=== PATIENT | female | born 1950 | race Caucasian/White ===

== ENCOUNTER → 2016-07-09 | Outpatient (CLI) | payer MEDICARE, OTHER ==
--- NOTE | 2016-07-09 15:32 | REP ---
Chest two views HISTORY: Cough Comparison: 03/20/2014 A minimal increase in interstitial markings is present in the lungs consistent with chronic interstitial fibrosis. The heart is normal in size. The pulmonary vasculature is normal in appearance. The bony structure is intact. IMPRESSION: Chronic interstitial fibrosis. Signed by Taye Deleon MD 07/09/2016 03:24 P
== END ==
LOC: M WUC 15:04
PROVIDERS: ATTEND Nurse Practitioner Family
DX: J06.9 Acute upper respiratory infection, unspecified (principal); R05 Cough; R06.2 Wheezing

== ENCOUNTER → 2016-10-30 | Outpatient (CLI) | payer MEDICARE, OTHER ==
--- NOTE | 2016-10-30 14:41 | REPMRS ---
Patient History The patient states she had a clinical breast exam in 10/2016. Patient is postmenopausal and has history of other cancer at age 62. Family history of breast cancer in sister at age 46, colorectal cancer in mother at age 50 or over, and breast cancer in maternal aunt under age 50. Benign cyst aspiration, 1980. Taking unspecified hormones for 3 years. Digital Woman Screen Mammo: October 30, 2016 - Exam #: [id number] Bilateral CC and MLO view(s) were taken. Technologist: Sadia Connelly, Technologist Prior study comparison: October 04, 2015, right breast digital mammo diagnostic unilateral, performed at [facility]. October 02, 2015, digital woman screen mammo performed at [facility]. FINDINGS: There are scattered fibroglandular densities. There is a fairly symmetric fibroglandular pattern in both breasts. There has been no interval development of masses, areas of architectural distortion or clusters of microcalcifications typical of malignancy. ASSESSMENT: BI-RADS/ACR category 2 mammogram. Benign finding(s). Recommendation Routine screening mammogram of both breasts in 1 year (for women over age 40). This mammogram was interpreted with the aid of an FDA-approved computer-aided dectection system. Electronically Signed By: Mango Coffey MD 10/30/16 [id number]
== END ==
LOC: M WHC 13:31
PROVIDERS: ATTEND Nurse Practitioner Women's Health
DX: Z01.419 Encounter for gynecological examination (general) (routine) without abnormal findings (principal); Z12.31 Encounter for screening mammogram for malignant neoplasm of breast; Z78.0 Asymptomatic menopausal state; Z12.12 Encounter for screening for malignant neoplasm of rectum; Z92.89 Personal history of other medical treatment; Z80.3 Family history of malignant neoplasm of breast
CPT/HCPCS: 82270; G0101; G0202

== ENCOUNTER → 2017-09-17 | Outpatient (CLI) | payer MEDICARE, OTHER | LOC: M RAD 10:59 | DX: Z12.2 Encounter for screening for malignant neoplasm of respiratory organs (principal); F17.218 Nicotine dependence, cigarettes, with other nicotine-induced disorders | CPT/HCPCS: G0297 ==

== ENCOUNTER → 2018-01-01 | Outpatient (CLI) | payer MEDICARE, OTHER | LOC: M WHC 15:01 | DX: Z12.31 Encounter for screening mammogram for malignant neoplasm of breast (principal); Z78.0 Asymptomatic menopausal state; Z92.89 Personal history of other medical treatment; Z92.29 Personal history of other drug therapy; Z80.3 Family history of malignant neoplasm of breast | CPT/HCPCS: 77067 ==

== ENCOUNTER → 2018-09-14 | Outpatient (CLI) | payer MEDICARE, OTHER ==
--- NOTE | 2018-09-14 13:37 | REP ---
CT CHEST WITHOUT CONTRAST: Low-dose screening exam. HISTORY: Personal history of nicotine dependence. Comparison screening exam September 17, 2017. Comparison chest CT is also reviewed from August 25 2016. There is a screening exam from August 16, [address] FINDINGS: Digital preliminary color adviser radiograph is unremarkable. The lungs are somewhat hyperinflated. There is mild right apical pleuroparenchymal fibrosis. This is slightly more prominent than on the prior studies. There is a new angular linear opacity in the right upper lobe consistent with some new fibrosis. No nodule is seen here or elsewhere. IMPRESSION: Lung RADS category 1 negative exam. Repeat screening exam suggested in 1 year. Electronically Signed by Paul Shepard MD 09/14/2018 05:17 P
== END ==
LOC: M RAD 09:31
PROVIDERS: ATTEND Internal Medicine Pulmonary Disease
DX: Z12.2 Encounter for screening for malignant neoplasm of respiratory organs (principal); F17.210 Nicotine dependence, cigarettes, uncomplicated

== ENCOUNTER → 2019-01-12 | Outpatient (CLI) | payer MEDICARE, OTHER ==
--- NOTE | 2019-01-12 20:52 | REP ---
Great toe series: Four views. History: Contusion. Findings: Four views of the left great toe demonstrate mild spurring at the first MTP joint. There is soft tissue swelling about the IP joint of the great toe. There is subtle cortical discontinuity along the medial aspect of the proximal phalanx of the great toe at the IP joint. A nondisplaced fracture is suspected. No other fracture is seen. Impression: Suspect nondisplaced fracture of the distal end of the proximal phalanx of the great toe at the IP joint. Electronically Signed by Paul Shepard MD 01/12/2019 09:20 P
== END ==
LOC: M WUC 15:56
PROVIDERS: ATTEND Physician Assistant
DX: S90.112A Contusion of left great toe without damage to nail, initial encounter (principal); X58.XXXA Exposure to other specified factors, initial encounter; Y92.89 Other specified places as the place of occurrence of the external cause

== ENCOUNTER → 2019-02-15 | Outpatient (CLI) | payer MEDICARE, OTHER ==
[~2019-02-15] MED LIST: ESTR1CRE VA; VITA200028 PO
--- NOTE | 2019-02-15 11:52 | REPMRS ---
Patient History The patient states she had a clinical breast exam in 01/2019. Patient is postmenopausal and has history of skin cancer at age 62. Family history of breast cancer at age 46 in sister, breast cancer under age 50 in maternal aunt, colorectal cancer at age 50 or over in mother. Benign cyst aspiration, 1981. Took unspecified hormones for 4 years. 3D TOMOSYNTHESIS WAS PERFORMED. [facility] lifetime risk for breast cancer is 10.0%. Digital Woman Screen Mammo: February 15, 2019 - Exam #: [id number] Bilateral CC and MLO view(s) were taken. Technologist: Gisel Dumas, Technologist Prior study comparison: January 01, 2018, bilateral digital woman screen mammo performed at [facility]. October 30, 2016, digital woman screen mammo performed at [facility]. FINDINGS: The breast tissue is heterogeneously dense. This may lower the sensitivity of mammography. There has been no change in the appearance of the mammogram from the prior studies. There is a moderate amount of residual fibroglandular tissue which is fairly symmetric. There is no interval development of dominant mass, areas of architectural distortion, or clustered microcalcification typical of malignancy. Assessment: BI-RADS/ACR category 1 mammogram. Negative Mammogram. Recommendation Routine screening mammogram in 1 year (for women over age 40). This mammogram was interpreted with the aid of an FDA-approved computer-aided dectection system. Electronically Signed By: Mango Coffey MD 02/15/19 [id number]
== END ==
LOC: M WHC 09:38
PROVIDERS: ATTEND Nurse Practitioner Women's Health
DX: Z01.419 Encounter for gynecological examination (general) (routine) without abnormal findings (principal); Z12.31 Encounter for screening mammogram for malignant neoplasm of breast; Z78.0 Asymptomatic menopausal state; Z85.828 Personal history of other malignant neoplasm of skin; Z80.3 Family history of malignant neoplasm of breast; Z80.0 Family history of malignant neoplasm of digestive organs; Z86.018 Personal history of other benign neoplasm; Z92.29 Personal history of other drug therapy
CPT/HCPCS: 77063; 77067; G0101

== ENCOUNTER → 2019-03-23 | Outpatient (REF) | payer MEDICARE, OTHER | LOC: M LAB REF 12:19 | PROVIDERS: ATTEND Internal Medicine | DX: Z01.89 Encounter for other specified special examinations (principal) ==

== ENCOUNTER 2019-07-13 10:47 | Day surgery (SDC) | payer MEDICARE, OTHER ==
[~2019-07-13] VITALS: Ht 162.6 cm; Wt 59.9 kg
[~2019-07-13 10:47] MED LIST changes: +NS 1,000 ML IV ONE
[2019-07-13] MEDS ORDERED: propofoL 200 MG/20 ML VIAL As Ordered ONE (11:53)
[2019-07-13] MEDS ORDERED: LIDOCAINE 2% INJ 100 MG/5 ML SDV (FOR ANES.) As Ordered ONE (11:53)
--- NOTE | 2019-07-13 13:43 | ROOR ---
Patient Name: Flory Ramírez Procedure Date: 07/13/2019 1:14 PM Date of : 1950 Age: 68 Room: [facility] Gender: Female Note Status: Finalized Procedure: Total Colonoscopy to Cecum + Cold Snare Polypectomy + Hemoclips Indications: Screening in patient at increased risk: Colorectal cancer in mother 60 or older Providers: Brice Armas MD Referring MD: DERREK CARTAGENA JR, MD Requesting Provider: Medicines: Monitored Anesthesia Care Complications: No immediate complications. Procedure: Pre-Anesthesia Assessment: - The heart rate, respiratory rate, oxygen saturations, blood pressure, adequacy of pulmonary ventilation, and response to care were monitored throughout the procedure. The Colonoscope was introduced through the anus and advanced to the terminal ileum, with identification of the appendiceal orifice and IC valve. The colonoscopy was performed without difficulty. The patient tolerated the procedure well. The quality of the bowel preparation was excellent. Findings: The perianal and digital rectal examinations were normal. Non-bleeding internal hemorrhoids were found during retroflexion. The hemorrhoids were small and Grade I (internal hemorrhoids that do not prolapse). Multiple small and large-mouthed diverticula were found in the recto-sigmoid colon, sigmoid colon and descending colon. A medium polyp was found in the ascending colon. The polyp was sessile. The polyp was removed with a cold snare. Resection and retrieval were complete. To prevent bleeding after the polypectomy, one hemostatic clip was successfully placed (MR conditional). There was no bleeding at the end of the procedure. A small polyp was found at 20 cm proximal to the anus. The polyp was sessile. The polyp was removed with a cold snare. Resection and retrieval were complete. To prevent bleeding after the polypectomy, one hemostatic clip was successfully placed (MR conditional). There was no bleeding at the end of the procedure. The exam was otherwise without abnormality. Impression: - Non-bleeding internal hemorrhoids. - Diverticulosis in the recto-sigmoid colon, in the sigmoid colon and in the descending colon. - One medium polyp in the ascending colon, removed with a cold snare. Resected and retrieved. Clip (MR conditional) was placed. - One small polyp at 20 cm proximal to the anus, removed with a cold snare. Resected and retrieved. Clip (MR conditional) was placed. - The examination was otherwise normal. - The exam was otherwise normal to the cecum. Recommendation: - Patient has a contact number available for emergencies. The signs and symptoms of potential delayed complications were discussed with the patient. Return to normal activities tomorrow. Written discharge instructions were provided to the patient. - High fiber diet. - Discharge patient to home. - Continue present medications. - Await pathology results. - Telephone GI clinic for pathology results in 1 week. - Repeat colonoscopy for screening purposes and for surveillance. - Return to referring physician. - The findings and recommendations were discussed with the patient's family. Brice Armas MD Brice Armas MD 07/13/2019 1:42:46 PM Electronically signed by Brice Armas MD Number of Addenda: 0 Note Initiated On: 07/13/2019 1:14 PM Estimated Blood Loss: Estimated blood loss: none.
[2019-07-13 14:05] VITALS: BP 127/79
== END 2019-07-13 14:40 | disposition home or self-care (01) ==
LOC: M OPP 10:47
PROVIDERS: ATTEND Internal Medicine Gastroenterology
DX: Z12.11 Encounter for screening for malignant neoplasm of colon (principal); K63.5 Polyp of colon; K57.30 Diverticulosis of large intestine without perforation or abscess without bleeding; K64.0 First degree hemorrhoids; Z80.0 Family history of malignant neoplasm of digestive organs; R12 Heartburn; M19.90 Unspecified osteoarthritis, unspecified site; J44.9 Chronic obstructive pulmonary disease, unspecified; F17.200 Nicotine dependence, unspecified, uncomplicated; Z85.828 Personal history of other malignant neoplasm of skin; Z79.890 Hormone replacement therapy; Z79.899 Other long term (current) drug therapy

== ENCOUNTER → 2019-10-13 | Outpatient (CLI) | payer MEDICARE, OTHER ==
[~2019-10-13] MED LIST changes: -NS 1,000 ML IV ONE
--- NOTE | 2019-10-13 12:34 | REP ---
LOW DOSE LUNG SCREENING CT: Low does lung screening CT performed without IV contrast. COMPARISON: 09/14/2018. Once again, there is no evidence of a suspicious pulmonary nodule. Small calcifications in the right posterior costophrenic sulcus. No consolidative infiltrate is seen. The heart is not enlarged. No pleural effusion is seen. The mediastinal contour is unremarkable. There are degenerative changes of the spine. IMPRESSION: Lung RADS category [address] No suspicious nodule. Followup recommended in 1 year. Electronically Signed by Mango Coffey MD 10/13/2019 12:58 P
== END ==
LOC: M RAD 10:23
PROVIDERS: ATTEND Internal Medicine Pulmonary Disease
DX: F17.218 Nicotine dependence, cigarettes, with other nicotine-induced disorders (principal)

== ENCOUNTER → 2020-02-17 | Outpatient (CLI) | payer MEDICARE, OTHER ==
--- NOTE | 2020-02-17 15:02 | REPMRS ---
Patient History The patient states she had a clinical breast exam in January 2020.Family history of breast cancer at age 46 in sister, breast cancer under age 50 in maternal aunt, colorectal cancer at age 50 or over in mother. Benign cyst aspiration, 1981. Took unspecified hormones for 4 years. Digital Woman Screen Mammo: February 17, 2020 - Exam #: [id number] Bilateral CC and MLO view(s) were taken. Technologist: Yaneth Benson, Technologist Prior study comparison: February 15, 2019, bilateral digital woman screen mammo performed at [facility]. January 01, 2018, bilateral digital woman screen mammo performed at [facility]. October 30, 2016, digital woman screen mammo performed at [facility]. FINDINGS: The breast tissue is heterogeneously dense. This may lower the sensitivity of mammography. The Volpara volumetric breast density category is: C. There is a moderate amount of heterogeneously dense fibroglandular tissue which is fairly symmetric. There is no interval development of dominant mass, architectural distortion, or grouped microcalcification typical of malignancy. There has been no change in the appearance of the mammogram from the prior studies. 3-D tomosynthesis shows no additional findings. Assessment: BI-RADS/ACR category 1 mammogram. Negative Mammogram. Recommendation Routine screening mammogram of both breasts in 1 year (for women over age 40). This patient's Lifetime Breast Cancer RIsk is estimated at 9.4 %. This mammogram was interpreted with the aid of an FDA-approved computer-aided dectection system. Electronically Signed By: Ryley Shepard MD 02/17/20 [id number]
== END ==
LOC: M WHC 11:06
PROVIDERS: ATTEND Nurse Practitioner Women's Health
DX: Z12.31 Encounter for screening mammogram for malignant neoplasm of breast (principal); Z80.3 Family history of malignant neoplasm of breast; Z80.0 Family history of malignant neoplasm of digestive organs; Z86.018 Personal history of other benign neoplasm; Z92.29 Personal history of other drug therapy

== ENCOUNTER → 2020-12-26 | Outpatient (CLI) | payer MEDICARE, OTHER ==
--- NOTE | 2020-12-26 09:35 | REP ---
INDICATION: NICOTINE DEPENDENCE. COMPARISON: 10/13/2019, 09/14/2018, 09/17/2017 TECHNIQUE: Low-dose lung CT screening protocol FINDINGS: Lung lyle are hyperinflated with underlying COPD. There is no pleural thickening, pleural plaque or calcified plaque, effusion or acute infiltrate. There are no parenchymal masses. Some minor apical pleuroparenchymal scarring again noted and unchanged. There are no suspicious nodules. Very minimal cylindrical bronchiectatic changes are suggested. No other findings. IMPRESSION: 1. Lung RADS category 1, negative lung screening CT. Patients with this category of the examination have less than 1% chance of malignancy at the time of the examination. For patients at high risk of developing lung cancer, annual low-dose CT screening recommended. <Electronically signed by Hill Abel > 12/26/20 [id number]
== END ==
LOC: M RAD 09:02
PROVIDERS: ATTEND Internal Medicine Pulmonary Disease
DX: Z12.2 Encounter for screening for malignant neoplasm of respiratory organs (principal); F17.218 Nicotine dependence, cigarettes, with other nicotine-induced disorders

== ENCOUNTER → 2021-03-13 | Outpatient (CLI) | payer MEDICARE, OTHER ==
--- NOTE | 2021-03-13 12:16 | REPMRS ---
Patient History The patient states she had a clinical breast exam on 03-13-21. Patient is postmenopausal and has history of other cancer at age 62. Family history of breast cancer at age 46 in sister, breast cancer under age 50 in maternal aunt, colorectal cancer at age 50 or over in mother. Benign cyst aspiration, 1980. Taking unspecified hormones for 5 years beginning at age 65. Tomosynthesis is performed. Volpara breast density is c. [facility] lifetime risk of breast cancer 8.9%. Patient states no breast complaints today. Patient has signed MRS History Sheet. Digital Woman Screen Mammo: March 13, 2021 - Exam #: [id number] Bilateral CC and MLO view(s) were taken. Technologist: Sonam Hong Vice Principal Prior study comparison: February 17, 2020, bilateral digital woman screen mammo performed at [facility]. February 15, 2019, bilateral digital woman screen mammo performed at [facility]. FINDINGS: The breast tissue is heterogeneously dense. This may lower the sensitivity of mammography. There has been no change in the appearance of the mammogram from the prior studies. There is a moderate amount of residual fibroglandular tissue which is fairly symmetric. There is no interval development of dominant mass, areas of architectural distortion, or clustered microcalcification typical of malignancy. Assessment: BI-RADS/ACR category 1 mammogram. Negative Mammogram. Recommendation Routine screening mammogram in 1 year (for women over age 40). This mammogram was interpreted with the aid of an FDA-approved computer-aided dectection system. Electronically Signed By: Mango Coffey MD 03/13/21 [id number]
== END ==
LOC: M WHC 10:50
PROVIDERS: ATTEND Nurse Practitioner Women's Health
DX: Z01.419 Encounter for gynecological examination (general) (routine) without abnormal findings (principal); Z12.31 Encounter for screening mammogram for malignant neoplasm of breast; Z80.3 Family history of malignant neoplasm of breast; Z78.0 Asymptomatic menopausal state
CPT/HCPCS: 77063; 77067; G0101

== ENCOUNTER → 2022-01-29 | Outpatient (CLI) | payer MEDICARE, OTHER | LOC: M RAD 09:31 | PROVIDERS: ATTEND Internal Medicine Pulmonary Disease | DX: Z12.2 Encounter for screening for malignant neoplasm of respiratory organs (principal); F17.218 Nicotine dependence, cigarettes, with other nicotine-induced disorders ==

== ENCOUNTER 2022-01-31 11:38 | Emergency (ER) | payer MEDICARE, OTHER ==
[~2022-01-31] VITALS: Ht 162.6 cm; Wt 63.6 kg
[2022-01-31] MEDS ORDERED: ELIQ5TAB PO (13:26)
[2022-01-31 13:50] VITALS: BP 170/80
== END 2022-01-31 14:11 | disposition home or self-care (01) ==
LOC: M ED 11:38
DX: I82.432 Acute embolism and thrombosis of left popliteal vein (principal); J44.9 Chronic obstructive pulmonary disease, unspecified; F17.200 Nicotine dependence, unspecified, uncomplicated

== ENCOUNTER → 2022-04-03 | Outpatient (CLI) | payer MEDICARE, OTHER ==
[~2022-04-03] MED LIST changes: +ELIQ5TAB PO
== END ==
LOC: M WHC 09:54
PROVIDERS: ATTEND Nurse Practitioner Family
DX: Z12.31 Encounter for screening mammogram for malignant neoplasm of breast (principal)

== ENCOUNTER → 2022-06-11 | Outpatient (CLI) | payer MEDICARE, OTHER | LOC: M WUC 09:12 | PROVIDERS: ATTEND Physician Assistant Medical | DX: R05.9 Cough, unspecified (principal); J44.9 Chronic obstructive pulmonary disease, unspecified ==

== ENCOUNTER → 2022-08-13 | Outpatient (REF) | payer MEDICARE, OTHER | LOC: M LAB REF 12:03 | PROVIDERS: ATTEND Internal Medicine | DX: I82.402 Acute embolism and thrombosis of unspecified deep veins of left lower extremity (principal) ==

== ENCOUNTER → 2022-08-19 | Outpatient (CLI) | payer MEDICARE, OTHER | LOC: M RAD 14:04 | PROVIDERS: ATTEND Internal Medicine | DX: I82.402 Acute embolism and thrombosis of unspecified deep veins of left lower extremity (principal) ==

== ENCOUNTER → 2022-10-03 | Outpatient (CLI) | payer MEDICARE, OTHER | LOC: M WUC 12:13 | PROVIDERS: ATTEND Nurse Practitioner Family | DX: R05.9 Cough, unspecified (principal) ==

== ENCOUNTER → 2022-10-08 | Outpatient (CLI) | payer MEDICARE, OTHER | LOC: M WUC 13:32 | PROVIDERS: ATTEND Internal Medicine Pulmonary Disease | DX: R05.9 Cough, unspecified (principal); J43.1 Panlobular emphysema; F17.218 Nicotine dependence, cigarettes, with other nicotine-induced disorders ==

== ENCOUNTER → 2023-07-06 | Outpatient (CLI) | payer MEDICARE, OTHER | LOC: M WHC 11:27 | PROVIDERS: ATTEND Nurse Practitioner Family | DX: Z12.31 Encounter for screening mammogram for malignant neoplasm of breast (principal) ==

== ENCOUNTER → 2024-04-14 | Outpatient (CLI) | payer MEDICARE, OTHER | LOC: M RAD 09:27 | PROVIDERS: ATTEND Internal Medicine Pulmonary Disease | DX: Z12.2 Encounter for screening for malignant neoplasm of respiratory organs (principal); F17.218 Nicotine dependence, cigarettes, with other nicotine-induced disorders ==

== ENCOUNTER 2024-08-08 09:13 | Day surgery (SDC) | payer MEDICARE, OTHER ==
[~2024-08-08] VITALS: Ht 162.6 cm; Wt 60.4 kg
[~2024-08-08 09:13] MED LIST changes: +LIDOCAINE 2% 100MG/5ML SDV (FOR ANES.) As Ordered ONE; +VITA200048 PO; +propofoL 200 MG/20 ML VIAL As Ordered ONE
[2024-08-08 11:02] VITALS: TEMP 97.9
[2024-08-08 11:20] VITALS: BP 139/73; O2SAT 96
[2024-08-09] MEDS ORDERED: ALLE180T33 PO (10:20)
== END 2024-08-08 11:30 | disposition home or self-care (01) ==
LOC: M OPP 09:13
PROVIDERS: ATTEND Internal Medicine Gastroenterology
DX: Z12.11 Encounter for screening for malignant neoplasm of colon (principal); K64.0 First degree hemorrhoids; K57.30 Diverticulosis of large intestine without perforation or abscess without bleeding; Z80.0 Family history of malignant neoplasm of digestive organs; Z79.899 Other long term (current) drug therapy; J44.9 Chronic obstructive pulmonary disease, unspecified; F17.210 Nicotine dependence, cigarettes, uncomplicated

== ENCOUNTER → 2024-08-12 | Outpatient (REF) | payer MEDICARE, OTHER ==
[~2024-08-12] MED LIST changes: +ALLE180T33 PO; -LIDOCAINE 2% 100MG/5ML SDV (FOR ANES.) As Ordered ONE; -propofoL 200 MG/20 ML VIAL As Ordered ONE
[2024-08-12 13:23] LABS: RSV AMPLIFICATION NEGATIVE (NEGATIVE)
== END ==
LOC: M LAB REF 12:20
PROVIDERS: ATTEND Nurse Practitioner Family
DX: R05.9 Cough, unspecified (principal); R53.1 Weakness

== ENCOUNTER → 2024-08-23 | Outpatient (REF) | payer MEDICARE, OTHER | LOC: M LAB REF 19:12 | PROVIDERS: ATTEND Physician Assistant | DX: R30.0 Dysuria (principal) ==

== ENCOUNTER 2024-09-01 22:06 | Inpatient (IN) | payer MEDICARE, OTHER ==
[~2024-09-01] VITALS: Ht 162.6 cm; Wt 61.8 kg
[2024-09-01] MEDS ORDERED: IBUP200C29 PO (22:13)
[2024-09-01] MEDS ORDERED: ACET-683 PO (22:13)
[2024-09-02] VITALS (18 sets, daily range): BP systolic 131–167; BP diastolic 69–90; TEMP 97.1–98.5; O2SAT 88–97
[2024-09-02 00:19] LABS: INR 0.96; PARTIAL THROMBOPLASTIN TIME 26.8 SECONDS (24.8-34.2); PROTHROMBIN TIME 13.1 SECONDS (12.5-14.5)
[2024-09-02 00:24] LABS: BASO % 0.4 % (0.0-1.0); EOS # 0.1 10^3/uL (0.0-0.5); EOS % 0.8 % (0.0-3.0); HEMATOCRIT 40.4 % (36.0-47.0); HEMOGLOBIN 13.4 g/dl (12.0-15.5); LYMPH # 1.5 10^3/uL (1.5-5.0); LYMPH % 13.9 % (24.0-44.0); MEAN CORPUSCULAR HEMOGLOBIN 31.3 pg (27.0-33.0); MEAN CORPUSCULAR HGB CONC 33.2 g/dl (32.0-36.5); MEAN CORPUSCULAR VOLUME 94.4 fl (80.0-96.0); MONO # 0.6 10^3/uL (0.0-0.8); MONO % 5.8 % (2.0-8.0); NEUTROPHILS # 8.5 10^3/uL (1.5-8.5); PLATELET COUNT, AUTOMATED 192 10^3/uL (150-450); RED BLOOD COUNT 4.28 10^6/uL (4.00-5.40); WHITE BLOOD COUNT 10.9 10^3/uL (4.0-10.0)
[2024-09-02 00:38] LABS: BILIRUBIN,DIRECT 0.2 MG/DL (<0.4); BILIRUBIN,TOTAL 0.9 MG/DL (0.3-1.2); C REACTIVE PROTEIN QUANTITATIV 1.19 MG/DL (<1.0); TOTAL PROTEIN 7.4 G/DL (5.7-8.2)
[2024-09-02 00:55] LABS: ERYTHROCYTE SEDIMENTATION RATE 24 mm/hr (0-30)
[2024-09-02] MEDS ORDERED: HEPARIN SOD (PORCINE) 5000UNITS/ML 1ML VIAL/SYRINGE IV PRN ×2 (01:50→08:15)
[2024-09-02] MEDS: HEPARIN DRIP 25,000 UNITS in IV 1 EA IV SCH (02:12)
[2024-09-02] MEDS ORDERED: HOME MED LIST COMPLETE! XX SCH (07:00)
[2024-09-02 07:47] LABS: CALCIUM LEVEL 9.8 MG/DL (8.3-10.6); CREATININE FOR GFR 1.03 MG/DL (0.55-1.30); GLOMERULAR FILTRATION RATE 56.7 (>39); POTASSIUM SERUM 4.6 MMOL/L (3.5-5.1)
[2024-09-02] MEDS ORDERED: HEPARIN DRIP 25,000 UNITS in IV 1 EA IV SCH (08:15)
[2024-09-02] MEDS ORDERED: ISOVUE-370 76% 100ML VIAL As Ordered ONE (08:33)
[2024-09-02] MEDS: NS (Normal Saline) 0.9% 1,000 ML IV SCH ×2 (09:17→23:01)
[2024-09-02 09:41] LABS: HEMATOCRIT 38.4 % (36.0-47.0); HEMOGLOBIN 12.6 g/dl (12.0-15.5); MEAN CORPUSCULAR HEMOGLOBIN 31.6 pg (27.0-33.0); MEAN CORPUSCULAR HGB CONC 32.8 g/dl (32.0-36.5); MEAN CORPUSCULAR VOLUME 96.2 fl (80.0-96.0); PLATELET COUNT, AUTOMATED 178 10^3/uL (150-450); RED BLOOD COUNT 3.99 10^6/uL (4.00-5.40); WHITE BLOOD COUNT 9.2 10^3/uL (4.0-10.0)
[2024-09-02 10:07] LABS: CK-MB VALUE MASS 3.2 NG/ML (<3.6)
[2024-09-02 10:13] LABS: MB/CK RELATIVE INDEX 3.59 (< OR =4)
[2024-09-02 14:18] LABS: PARTIAL THROMBOPLASTIN TIME 113.6 SECONDS (24.8-34.2); PROTHROMBIN TIME 13.5 SECONDS (12.5-14.5)
[2024-09-02] MEDS ORDERED: LIDOCAINE 1% MDV 20ML VIAL SC ONE (17:35)
[2024-09-02] MEDS ORDERED: ISOVUE-300 61% 100ML VIAL As Ordered ONE (17:38)
[2024-09-02] MEDS ORDERED: LIDOCAINE 1% MDV 20ML VIAL As Ordered ONE (17:39)
[2024-09-02] MEDS: fentaNYL 100 MCG/2 ML INJECTION IV PRN (18:09)
[2024-09-02] MEDS: MIDAZOLAM INJ 2MG/2ML VIAL IV PRN (18:10)
[2024-09-02] MEDS: HEPARIN 1,000UNITS/ML 10ML VIAL (FOR RADIOLOGY & DIALYSIS ONLY) IV SCH (18:46)
[2024-09-02] MEDS: ISOVUE-300 61% 100ML VIAL IV ONE (18:57)
[2024-09-02 19:58] LABS: CREATININE FOR GFR 0.83 MG/DL (0.55-1.30); GLOMERULAR FILTRATION RATE > 60.0 (>39)
[2024-09-02] MEDS: ENOXAPARIN 60MG/0.6ML SYRINGE (J1650 PER 10MG) SC SCH (20:36)
[2024-09-02] MEDS: ACETAMINOPHEN 325 MG TAB PO PRN (23:12)
[2024-09-03] VITALS (15 sets, daily range): BP systolic 111–137; BP diastolic 58–69; TEMP 97.8–98; O2SAT 81–97
[2024-09-03 05:48] LABS: BASO % 0.4 % (0.0-1.0); EOS # 0.3 10^3/uL (0.0-0.5); EOS % 3.4 % (0.0-3.0); HEMATOCRIT 31.7 % (36.0-47.0); LYMPH # 2.3 10^3/uL (1.5-5.0); LYMPH % 31.3 % (24.0-44.0); MEAN CORPUSCULAR HEMOGLOBIN 31.2 pg (27.0-33.0); MEAN CORPUSCULAR HGB CONC 32.5 g/dl (32.0-36.5); MEAN CORPUSCULAR VOLUME 96.1 fl (80.0-96.0); MONO # 0.5 10^3/uL (0.0-0.8); MONO % 6.1 % (2.0-8.0); NEUTROPHILS # 4.3 10^3/uL (1.5-8.5); NEUTROPHILS % 58.5 % (36.0-66.0); PLATELET COUNT, AUTOMATED 169 10^3/uL (150-450); WHITE BLOOD COUNT 7.4 10^3/uL (4.0-10.0)
[2024-09-03 05:58] LABS: HEMOGLOBIN 10.3 g/dl (12.0-15.5)
[2024-09-03 06:25] LABS: BLOOD UREA NITROGEN 14 MG/DL (9-23); CALCIUM LEVEL 7.7 MG/DL (8.3-10.6); CARBON DIOXIDE LEVEL 26 MMOL/L (20-31); CHLORIDE LEVEL 108 MMOL/L (98-107); CREATININE FOR GFR 0.81 MG/DL (0.55-1.30); GLOMERULAR FILTRATION RATE > 60.0 (>39); GLUCOSE, FASTING 90 MG/DL (74-106); MAGNESIUM LEVEL 1.8 MG/DL (1.8-2.4); POTASSIUM SERUM 4.2 MMOL/L (3.5-5.1); SODIUM LEVEL 141 MMOL/L (136-145)
[2024-09-03] MEDS: FEXOFENADINE 60MG TAB PO SCH (08:59)
[2024-09-03] MEDS: VITAMIN D 1,000 INTERNATIONAL UNITS TABLET PO SCH (08:59)
[2024-09-03] MEDS ORDERED: LOVE0.4I2 SC (09:15)
[2024-09-03] MEDS ORDERED: ELIQ5TAB PO (09:15)
== END 2024-09-03 12:30 | disposition home health service (06) | DRG 270 ==
LOC: M ED 22:06 → M ED INP 09-02 08:04 → M PCU 09-02 10:02
PROVIDERS: ADMIT Internal Medicine; ATTEND Internal Medicine
PROC: 06CD3ZZ Extirpation of Matter from Left Common Iliac Vein, Percutaneous Approach (ICD-10-PCS; 2024-09-02)
PROC: 06CG3ZZ Extirpation of Matter from Left External Iliac Vein, Percutaneous Approach (ICD-10-PCS; 2024-09-02)
PROC: 06CN3ZZ Extirpation of Matter from Left Femoral Vein, Percutaneous Approach (ICD-10-PCS; principal; 2024-09-02 16:00)
DX: I82.412 Acute embolism and thrombosis of left femoral vein (principal); I26.99 Other pulmonary embolism without acute cor pulmonale; J44.9 Chronic obstructive pulmonary disease, unspecified; J43.9 Emphysema, unspecified; E78.5 Hyperlipidemia, unspecified; I12.9 Hypertensive chronic kidney disease with stage 1 through stage 4 chronic kidney disease, or unspecified chronic kidney disease; N18.30 Chronic kidney disease, stage 3 unspecified; I82.432 Acute embolism and thrombosis of left popliteal vein; M51.369 Other intervertebral disc degeneration, lumbar region without mention of lumbar back pain or lower extremity pain; F17.200 Nicotine dependence, unspecified, uncomplicated; Z85.828 Personal history of other malignant neoplasm of skin; Z86.16 Personal history of COVID-19; Z87.440 Personal history of urinary (tract) infections; Z79.1 Long term (current) use of non-steroidal anti-inflammatories (NSAID); Z79.899 Other long term (current) drug therapy

== ENCOUNTER → 2024-09-09 | Outpatient (POV) | payer MEDICARE, OTHER ==
[~2024-09-09] VITALS: Ht 162.6 cm; Wt 61.4 kg
[~2024-09-09] MED LIST changes: +ACET-683 PO; +IBUP200C29 PO; +LOVE0.4I2 SC
[2024-09-09 10:30] VITALS: BP 168/92; O2SAT 97
== END ==
LOC: M IRPOV 09:50
PROVIDERS: ATTEND Radiology Diagnostic Radiology
DX: Z48.812 Encounter for surgical aftercare following surgery on the circulatory system (principal); I82.522 Chronic embolism and thrombosis of left iliac vein; I82.412 Acute embolism and thrombosis of left femoral vein; Z79.01 Long term (current) use of anticoagulants

== ENCOUNTER → 2024-09-20 | Outpatient (REF) | payer MEDICARE, OTHER ==
[2024-09-20 14:07] LABS: PERCENT SATURATION 29.4 % (13.2-45.0)
== END ==
LOC: M LAB REF 13:33
PROVIDERS: ATTEND Internal Medicine
DX: D64.9 Anemia, unspecified (principal)

== ENCOUNTER → 2024-12-07 | Outpatient (POV) | payer MEDICARE, OTHER ==
[~2024-12-07] VITALS: Ht 162.6 cm; Wt 61.4 kg
[2024-12-07 11:00] VITALS: BP 170/92; O2SAT 98
== END ==
LOC: M IRPOV 10:29
PROVIDERS: ATTEND Radiology Diagnostic Radiology
DX: Z09 Encounter for follow-up examination after completed treatment for conditions other than malignant neoplasm (principal); I82.492 Acute embolism and thrombosis of other specified deep vein of left lower extremity; Z79.01 Long term (current) use of anticoagulants; Z86.718 Personal history of other venous thrombosis and embolism; Z86.16 Personal history of COVID-19; Z91.09 Other allergy status, other than to drugs and biological substances
CPT/HCPCS: 93971; G0463

== ENCOUNTER → 2024-12-07 | Outpatient (CLI) | payer MEDICARE, OTHER | LOC: M RAD 10:28 | PROVIDERS: ATTEND Radiology Diagnostic Radiology | DX: I82.492 Acute embolism and thrombosis of other specified deep vein of left lower extremity (principal) ==

== ENCOUNTER 2024-12-12 08:32 | Day surgery (SDC) | payer MEDICARE, OTHER ==
[~2024-12-12] VITALS: Ht 162.6 cm; Wt 59.9 kg
[~2024-12-12 08:32] MED LIST changes: +LR 1,000 ML IV SCH
[2024-12-12] MEDS ORDERED: MIDAZOLAM INJ 2 MG/2 ML VIAL As Ordered ONE (08:35)
[2024-12-12] MEDS: FLURBIPROFEN 0.03% OPHTH SOLN 2.5 ML OS SCH (09:48)
[2024-12-12] MEDS: PHENYLEPHRINE 2.5% OPHTH SOL 2ML OS SCH (09:48)
[2024-12-12] MEDS: TETRACAINE 0.5% OPHTH SOLN 4ML OS SCH (09:48)
[2024-12-12] MEDS: CYCLOPENTOLATE 1% OPHTH SOLN 2 ML BTL OS SCH (09:48)
[2024-12-12] MEDS: LIDOCAINE 1% SDV 5 ML VIAL As Ordered ONE (10:58)
[2024-12-12] MEDS: CEFUROXIME 1 MG/0.1 ML INTRACAMERAL INJ As Ordered ONE (10:58)
[2024-12-12 11:17] VITALS: BP 160/72; TEMP 97.2; O2SAT 96
== END 2024-12-12 11:36 | disposition home or self-care (01) ==
LOC: M SDC 08:32
PROVIDERS: ATTEND Ophthalmology
DX: H25.12 Age-related nuclear cataract, left eye (principal); Z91.048 Other nonmedicinal substance allergy status; Z79.899 Other long term (current) drug therapy; F17.210 Nicotine dependence, cigarettes, uncomplicated; Z98.41 Cataract extraction status, right eye
CPT/HCPCS: 66984; J0697; J2250; J3010; V2632